=== PATIENT | female | born 1955 | race Caucasian/White ===

== ENCOUNTER 2017-12-24 21:35 | Emergency (ER) | payer MEDICAID, OTHER ==
[2017-12-24 22:33] VITALS: RESP 20; TEMP 98.2
[2017-12-24] MEDS ORDERED: DIAZEPAM 5 MG TAB PO ONE (23:35)
[2017-12-24] MEDS ORDERED: ONDANSETRON 4 MG ODT BU ONE (23:35)
[2017-12-24] MEDS ORDERED: DIAZEPAM 5 MG TAB ONE (23:38)
[2017-12-24] MEDS ORDERED: ONDANSETRON 4 MG ODT ONE (23:38)
[2017-12-25 02:28] VITALS: BP 148/80; PULSE 73; O2SAT 98
== END 2017-12-25 00:09 | disposition home or self-care (01) | DRG 149 ==
LOC: ED 21:35
DX: H83.09 Labyrinthitis, unspecified ear (principal); E11.9 Type 2 diabetes mellitus without complications; Z79.4 Long term (current) use of insulin; I10 Essential (primary) hypertension; E78.5 Hyperlipidemia, unspecified; M06.9 Rheumatoid arthritis, unspecified
CPT/HCPCS: 82962; 99283; A9270-GY

== ENCOUNTER 2018-09-16 16:14 | Emergency (ER) | payer OTHER ==
[2018-09-16 16:37] VITALS: TEMP 97.5
[2018-09-16] MEDS ORDERED: SODIUM CHLORIDE 0.9% 1000ML 1,000 ML IV SCH (17:00)
[2018-09-16 17:01] LABS: BASOPHILS % (AUTO) 1 % (0-3); EOSINOPHILS % (AUTO) 2 % (0-9); HEMATOCRIT 41 % (35-47); HEMOGLOBIN 13.4 gm/dl (12.0-15.5); LYMPHOCYTES % (AUTO) 19.4 % (10-50); MEAN CORPUSCULAR HEMOGLOBIN 30.2 pg (27.0-32.0); MEAN CORPUSCULAR HGB CONC 32.6 gm/dl (32.0-36.0); MEAN CORPUSCULAR VOLUME 93 fL (81-99); MONOCYTES % (AUTO) 7.7 % (0-12); NEUTROPHILS % (AUTO) 70.7 % (37-80)
[2018-09-16 17:16] LABS: CALCIUM 8.6 mg/dl (8.5-10.1); CARBON DIOXIDE 28.3 mEq/L (21-32); CREATININE 1.32 mg/dl (0.60-1.00); HEMOGLOBIN A1C 10.6 % (4.8-6.0); POTASSIUM 4.3 mMol/L (3.5-5.1)
[2018-09-16] MEDS ORDERED: INSULIN HUMAN REGULAR 100 U/ML SOL IV ONE (17:19)
[2018-09-16] MEDS ORDERED: INSULIN HUMAN REGULAR 100 U/ML SOL ONE (17:30)
[2018-09-16] MEDS: LABETALOL HYDROCHLORIDE 5 MG/ML SOL IV ONE (17:47)
[2018-09-16] MEDS ORDERED: LABETALOL HYDROCHLORIDE 5 MG/ML SOL IV ONE (17:48)
[2018-09-16] MEDS ORDERED: METOPROLOL TARTRATE 5 MG/5 ML SOL IV ONE ×2 (18:32→19:06)
[2018-09-16 19:41] VITALS: RESP 20
[2018-09-16 20:15] VITALS: BP 169/78; PULSE 77; O2SAT 96
== END 2018-09-16 19:59 | disposition home or self-care (01) | DRG 639 ==
LOC: ED 16:14
DX: E11.65 Type 2 diabetes mellitus with hyperglycemia (principal); Z79.4 Long term (current) use of insulin; I10 Essential (primary) hypertension
CPT/HCPCS: 80048; 82962; 83036; 84484; 85025; 93005; 96365; 96374; 96375; 99284; 99285; J1815; J3490

== ENCOUNTER 2018-10-26 09:38 | Day surgery (SDC) | payer OTHER ==
[2018-10-26] MEDS ORDERED: DIAZEPAM 5 MG TAB ONE (09:44)
[2018-10-26 09:58] VITALS: RESP 16
[2018-10-26] MEDS ORDERED: DEXAMETHASONE SOD PHOS PF 10 MG/ML SOL IJ ONE (10:04)
[2018-10-26] MEDS ORDERED: BUPIVACAINE HCL 0.25% MPF 30 ML SOL INFIL ONE (10:04)
[2018-10-26 10:29] VITALS: PULSE 73; O2SAT 96
[2018-10-26 10:30] VITALS: TEMP 97.7
== END 2018-10-26 11:18 | disposition home or self-care (01) | DRG 552 ==
LOC: SURG 09:38
PROVIDERS: ATTEND Nurse Anesthetist, Certified Registered
DX: M48.062 Spinal stenosis, lumbar region with neurogenic claudication (principal); E11.9 Type 2 diabetes mellitus without complications
CPT/HCPCS: 82962; A9270-GY; J1100

== ENCOUNTER 2018-12-22 12:05 | Emergency (ER) | payer OTHER ==
[2018-12-22] MEDS: SODIUM CHLORIDE 0.9% FLUSH 10 ML SOL IV PRN ×2 (12:10→13:22)
[2018-12-22] MEDS ORDERED: HYDRALAZINE HYDROCHLORIDE 20 MG/ML SOL IV ONE (12:16)
[2018-12-22] MEDS ORDERED: HYDRALAZINE HYDROCHLORIDE 20 MG/ML SOL ONE (12:16)
[2018-12-22 12:19] VITALS: TEMP 97.9
[2018-12-22 12:26] LABS: BASOPHILS % (AUTO) 1 % (0-3); EOSINOPHILS % (AUTO) 2 % (0-9); HEMATOCRIT 40 % (35-47); HEMOGLOBIN 12.9 gm/dl (12.0-15.5); MEAN CORPUSCULAR HEMOGLOBIN 30.4 pg (27.0-32.0); MEAN CORPUSCULAR HGB CONC 32.5 gm/dl (32.0-36.0); MEAN CORPUSCULAR VOLUME 94 fL (81-99); MONOCYTES % (AUTO) 7.8 % (0-12); NEUTROPHILS % (AUTO) 67.7 % (37-80)
[2018-12-22 12:32] LABS: LACTIC ACID 1.3 mMol/L (0.0-2.0)
[2018-12-22 12:40] LABS: ALBUMIN 3.1 gm/dl (3.4-5.0); BILIRUBIN,TOTAL 0.5 mg/dl (0.2-1.0); CALCIUM 8.8 mg/dl (8.5-10.1); CREATININE 0.96 mg/dl (0.60-1.00); POTASSIUM 4.4 mMol/L (3.5-5.1); TOTAL PROTEIN 6.9 gm/dl (6.4-8.2); TROP I 0.03 ng/ml (0.000-0.056)
[2018-12-22] MEDS ORDERED: LABETALOL HYDROCHLORIDE 5 MG/ML SOL IV ONE ×2 (13:06→13:12)
[2018-12-22] MEDS ORDERED: ACETAMINOPHEN 500 MG 500 MG TAB PO ONE (13:29)
[2018-12-22] MEDS ORDERED: ACETAMINOPHEN 500 MG 500 MG TAB ONE (13:30)
[2018-12-22 13:58] VITALS: O2SAT 94
[2018-12-22] MEDS ORDERED: FUROSEMIDE 20mg SOL IV ONE (14:48)
[2018-12-22] MEDS ORDERED: FUROSEMIDE 20mg SOL ONE (14:55)
[2018-12-22 15:32] VITALS: BP 171/90; PULSE 69; RESP 22
== END 2018-12-22 15:05 | disposition home or self-care (01) | DRG 293 ==
LOC: ED 12:05
DX: I50.9 Heart failure, unspecified (principal); Z79.4 Long term (current) use of insulin; R06.02 Shortness of breath
CPT/HCPCS: 71045; 80053; 83880; 84484; 85025; 85378; 93005; 96374; 96375; 99284; 99285; J0360; J1940; A9270-GY; J3490

== ENCOUNTER → 2018-12-22 | Day surgery (SDC) | payer OTHER ==
[~2018-12-22] MED LIST: DIAZEPAM 5 MG TAB ONE
[2018-12-22 11:13] VITALS: PULSE 80; RESP 16; TEMP 97.7; O2SAT 93
[2018-12-22 11:51] VITALS: BP 221/119
== END | disposition home or self-care (01) | DRG 951 ==
LOC: SURG 10:29
PROVIDERS: ATTEND Nurse Anesthetist, Certified Registered
DX: Z53.9 Procedure and treatment not carried out, unspecified reason (principal)
CPT/HCPCS: A9270-GY

== ENCOUNTER 2019-01-05 07:48 | Day surgery (SDC) | payer OTHER ==
[2019-01-05] MEDS ORDERED: DIAZEPAM 5 MG TAB ONE (08:34)
[2019-01-05 08:38] VITALS: RESP 16
[2019-01-05] MEDS ORDERED: TRIAMCINOLONE ACETONIDE 40 MG/ML SUS ONE (08:54)
[2019-01-05] MEDS ORDERED: BUPIVACAINE HCL 0.25% MPF 30 ML SOL INFIL ONE (08:54)
[2019-01-05 09:37] VITALS: BP 138/71; PULSE 65; TEMP 97.8; O2SAT 95
== END 2019-01-05 09:34 | disposition home or self-care (01) | DRG 554 ==
LOC: SURG 07:48
PROVIDERS: ATTEND Nurse Anesthetist, Certified Registered
DX: M12.9 Arthropathy, unspecified (principal); E11.9 Type 2 diabetes mellitus without complications
CPT/HCPCS: 82962; A9270-GY; J3300

== ENCOUNTER 2019-02-16 13:24 | Day surgery (SDC) | payer OTHER ==
[2019-02-16] MEDS ORDERED: DIAZEPAM 5 MG TAB ONE (14:07)
[2019-02-16] MEDS ORDERED: DEXAMETHASONE SOD PHOS PF 10 MG/ML SOL IJ ONE (14:38)
[2019-02-16] MEDS ORDERED: BUPIVACAINE HCL 0.25% MPF 30 ML SOL INFIL ONE (14:38)
[2019-02-16 15:20] VITALS: BP 167/88; PULSE 67; RESP 20; TEMP 97.6; O2SAT 95
== END 2019-02-16 15:42 | disposition home or self-care (01) | DRG 552 ==
LOC: SURG 13:24
PROVIDERS: ATTEND Nurse Anesthetist, Certified Registered
DX: M48.062 Spinal stenosis, lumbar region with neurogenic claudication (principal); E11.9 Type 2 diabetes mellitus without complications
CPT/HCPCS: A9270-GY; J1100